=== PATIENT | male | born 1960 | race Two or more races ===

== ENCOUNTER 2024-08-19 13:39 | Emergency (ER) | payer OTHER ==
[~2024-08-19] VITALS: Ht 182.9 cm; Wt 79.4 kg
[2024-08-19 13:42] VITALS: TEMP 98.3
[2024-08-19] MEDS ORDERED: LIDOCAINE 0.5% HCL 50 ML VIAL ONE (14:04)
[2024-08-19 14:54] VITALS: BP 122/84; O2SAT 99
== END 2024-08-19 14:50 | disposition home or self-care (01) ==
LOC: ER 13:52
DX: S01.511A Laceration without foreign body of lip, initial encounter (principal); I10 Essential (primary) hypertension; Z60.2 Problems related to living alone; W01.0XXA Fall on same level from slipping, tripping and stumbling without subsequent striking against object, initial encounter; Y93.89 Activity, other specified; Y92.481 Parking lot as the place of occurrence of the external cause; Y99.8 Other external cause status
CPT/HCPCS: 12011; 99282; A6403; J3490